=== PATIENT | male | born 1950 | race African-American/Black ===

== ENCOUNTER 2016-12-01 11:33 | Emergency (ER) | payer OTHER ==
[~2016-12-01] VITALS: Ht 180.3 cm; Wt 79.0 kg
[~2016-12-01 11:33] MED LIST: GLIP2.5T3 PO; LISI-186 PO; SIMV20TA6 PO; TRAZ-129 PO
[2016-12-01 12:45] VITALS: BP 180/89
[2016-12-01] MEDS ORDERED: KETOROLAC 60MG/2ML VIAL IM ONE (12:45)
== END 2016-12-01 14:03 | disposition home or self-care (01) ==
LOC: ER 12:47
DX: J20.9 Acute bronchitis, unspecified (principal); I10 Essential (primary) hypertension; E11.9 Type 2 diabetes mellitus without complications; F17.210 Nicotine dependence, cigarettes, uncomplicated
CPT/HCPCS: 71010; 82962; 96372; 99283; J1885

== ENCOUNTER 2018-07-07 10:17 | Inpatient (IN) | payer OTHER ==
[~2018-07-07] VITALS: Ht 180.3 cm; Wt 88.0 kg
[~2018-07-07 10:17] MED LIST changes: -TRAZ-129 PO; +TRAZ-212 PO
[2018-07-07] MEDS ORDERED: ALBUTEROL (0.083%) 2.5MG/3ML NEB HHN STA (10:58)
[2018-07-07 11:39] LABS: BASOPHILS % 1.4 % (0.0-2.0); HEMATOCRIT. 39.8 % (42.0-52.0); HEMOGLOBIN. 12.9 g/dL (14.0-18.0); MEAN CORPUSCULAR HEMOGLOBIN 22.3 pg (28.0-32.0); MEAN CORPUSCULAR VOLUME 68.6 fL (80.0-94.0); MEAN PLATELET VOLUME 8.3 fl (7.4-10.4); MONOCYTES % 7.6 % (2.0-8.0); PLATELET 166 x1000/uL (130-400); RED CELL DISTRIBUTION WIDTH 16.7 % (11.6-14.6)
[2018-07-07 11:47] LABS: CHLORIDE 105 mEq/L (98-107)
[2018-07-07 12:04] LABS: PLATELET ESTIMATE NORMAL
[2018-07-07] MEDS ORDERED: HYDROCODONE/ACETAMINOPHEN 5/325MG TABLET PO ONE (13:45)
[2018-07-07] MEDS ORDERED: IOHEXOL-300 100 ML BOTTLE ONE (14:56)
[2018-07-07] MEDS ORDERED: MAGNESIUM/ALUMINUM HYDROXIDE/SIMETHICONE 30ML UDC PO ONE (15:45)
[2018-07-07] MEDS ORDERED: ONDANSETRON HCL 4MG/2ML INJ IV STA (19:56)
[2018-07-07] MEDS ORDERED: MORPHINE SULFATE 4 MG/ML CPJ (NOT FOR IM USE) IV STA (19:56)
[2018-07-07 20:00] VITALS: BP 182/79
[2018-07-07 20:45] VITALS: BP 182/79
[2018-07-07] MEDS ORDERED: ONDANSETRON HCL 4MG/2ML INJ IV PRN (22:00)
[2018-07-07] MEDS ORDERED: DEXTROSE 50% WATER 50ML SYRINGE IV PRN (22:00)
[2018-07-07] MEDS ORDERED: GUAIFENESIN 200MG/10ML SUGAR FREE UDC PO PRN (22:00)
[2018-07-07] MEDS ORDERED: ACETAMINOPHEN 325MG TABLET PO PRN (22:00)
[2018-07-07] MEDS ORDERED: IPRATROPIUM/ALBUTEROL 0.5-3(2.5)MG/3ML NEB INH PRN (22:00)
[2018-07-07] MEDS ORDERED: HYDROCODONE/ACETAMINOPHEN 5/325MG TABLET PO PRN (22:00)
[2018-07-07] MEDS ORDERED: MAGNESIUM/ALUMINUM HYDROXIDE/SIMETHICONE 30ML UDC PO PRN (22:00)
[2018-07-07] MEDS: SODIUM CHLORIDE 0.9% INJ 3ML FLUSH IVF SCH (22:50)
[2018-07-07] MEDS: CLONIDINE 0.1MG TABLET PO PRN (22:50)
[2018-07-07] MEDS: MAGNESIUM HYDROXIDE 400MG/5ML 30ML UDC PO PRN (23:33)
[2018-07-07] MEDS: TEMAZEPAM 15MG CAPSULE PO PRN (23:33)
[2018-07-08] VITALS: BP 172/86
[2018-07-08 04:00] VITALS: BP 139/83
[2018-07-08] MEDS: KETOROLAC 30MG/ML VIAL IV PRN ×3 (04:08→19:53)
[2018-07-08] MEDS: SODIUM CHLORIDE 0.9% INJ 3ML FLUSH IVF SCH ×3 (05:16→21:45)
[2018-07-08] MEDS: BLOOD SUGAR DIAGNOSTIC STRIP TEST SCH ×4 (06:36→20:23)
[2018-07-08] MEDS: INSULIN LISPRO 100 UNITS/ML SUBCUT SCH ×4 (07:15→20:23)
[2018-07-08] MEDS ORDERED: HYDROCODONE/ACETAMINOPHEN 5/325MG TABLET PO PRN (07:52)
[2018-07-08] MEDS: ENOXAPARIN 40MG/0.4ML SYR SUBCUT SCH (08:45)
[2018-07-08] MEDS: MAGNESIUM HYDROXIDE 400MG/5ML 30ML UDC PO PRN (08:51)
[2018-07-08 09:04] LABS: *AMPHETAMINES SCREEN URINE NEGATIVE (NEGATIVE); *BARBITURATES SCREEN URINE NEGATIVE (NEGATIVE); *BENZODIAZEPINES SCREEN URINE NEGATIVE (NEGATIVE); *COCAINE SCREEN URINE NEGATIVE (NEGATIVE)
[2018-07-08 09:05] LABS: CANNABINOID URINE SCREEN PRESUMTIVE POSITIVE (NEGATIVE); METHADONE URINE SCREEN NEGATIVE (NEGATIVE); OPIATES URINE SCREEN PRESUMTIVE POSITIVE (NEGATIVE); PHENCYCLIDINE URINE SCREEN NEGATIVE (NEGATIVE)
[2018-07-08] MEDS: PANTOPRAZOLE 40MG DR TABLET PO SCH (11:34)
[2018-07-08] MEDS: HYDROCODONE/ACETAMINOPHEN 5/325MG TABLET PO PRN ×3 (13:22→21:45)
[2018-07-08 15:53] VITALS: BP 153/87
[2018-07-08 17:33] LABS: T4 FREE 0.79 ng/dL (0.76-1.46)
[2018-07-08 19:25] VITALS: BP 142/80
[2018-07-08] MEDS ORDERED: REGADENOSON 0.4 MG/5 ML IV NR (19:30)
[2018-07-08] MEDS: TEMAZEPAM 15MG CAPSULE PO PRN (21:45)
[2018-07-08 23:38] LABS: CREATINE KINASE MB FRACTION 2.9 ng/mL (0.5-3.6)
[2018-07-09] MEDS: KETOROLAC 30MG/ML VIAL IV PRN ×2 (03:13→13:42)
[2018-07-09] MEDS: PANTOPRAZOLE 40MG DR TABLET PO SCH (06:45)
[2018-07-09] MEDS: BLOOD SUGAR DIAGNOSTIC STRIP TEST SCH ×3 (06:47→16:45)
[2018-07-09] MEDS: SODIUM CHLORIDE 0.9% INJ 3ML FLUSH IVF SCH (06:51)
[2018-07-09] MEDS: INSULIN LISPRO 100 UNITS/ML SUBCUT SCH ×2 (07:05→13:43)
[2018-07-09 07:53] LABS: CREATINE KINASE MB FRACTION 3.1 ng/mL (0.5-3.6)
[2018-07-09] MEDS ORDERED: REGADENOSON 0.4 MG/5 ML IV ONE (08:00)
[2018-07-09 08:30] VITALS: BP 185/81
[2018-07-09] MEDS ORDERED: LIDOCAINE 5% PATCH TOP SCH (09:00)
[2018-07-09] MEDS: CLONIDINE 0.1MG TABLET PO PRN (09:52)
[2018-07-09] MEDS: HYDROCODONE/ACETAMINOPHEN 5/325MG TABLET PO PRN (09:52)
[2018-07-09] MEDS: ENOXAPARIN 40MG/0.4ML SYR SUBCUT SCH (09:53)
[2018-07-09 12:00] VITALS: BP 137/85
[2018-07-09 16:44] VITALS: BP 137/85
== END 2018-07-09 17:05 | disposition home or self-care (01) | DRG 313 ==
LOC: ER 10:17 → EDBEDREQ 16:08 → EDBEDREQTM 16:08 → 5WST 16:08 → ENRESERV 19:16
PROVIDERS: ADMIT Internal Medicine; ATTEND Internal Medicine
DX: R07.89 Other chest pain (principal); E11.9 Type 2 diabetes mellitus without complications; E78.5 Hyperlipidemia, unspecified; F17.200 Nicotine dependence, unspecified, uncomplicated; G89.29 Other chronic pain; I10 Essential (primary) hypertension; K21.9 Gastro-esophageal reflux disease without esophagitis; M54.5 Low back pain; Z79.899 Other long term (current) drug therapy; Z82.49 Family history of ischemic heart disease and other diseases of the circulatory system; Z83.3 Family history of diabetes mellitus
CPT/HCPCS: 36415; 71045; 74177; 78452; 80061; 80305; 82550; 82553; 82962; 83036; 83880; 84439; 84443; 84484; 85379; 93005; 93017; 93306; 94640; 96374; 99285; A9500; J1650; J1815; J1885; J2270; J2405; J2785; J7611; Q9967

== ENCOUNTER 2018-09-27 10:56 | Emergency (ER) | payer OTHER ==
[~2018-09-27] VITALS: Ht 177.8 cm; Wt 78.0 kg
[~2018-09-27 10:56] MED LIST changes: -GLIP2.5T3 PO
[2018-09-27] MEDS ORDERED: ONDANSETRON HCL 4MG/2ML INJ IV STA (12:47)
[2018-09-27] MEDS ORDERED: ASPIRIN 81MG TABLET PO ONE (13:00)
[2018-09-27] MEDS ORDERED: MORPHINE SULFATE 10 MG/ML CPJ IV ONE ×2 (13:00→16:15)
[2018-09-27 14:10] LABS: CHLORIDE 108 mEq/L (98-107)
[2018-09-27 14:14] LABS: ETHANOL BLOOD < 10 mg/dL
[2018-09-27 14:15] LABS: D-DIMER 1.91 mg/L FEU (<0.50); HEMATOCRIT. 38.3 % (42.0-52.0); HEMOGLOBIN. 12.2 g/dL (14.0-18.0); MEAN CORPUSCULAR HEMOGLOBIN 21.7 pg (28.0-32.0); MEAN CORPUSCULAR VOLUME 68.4 fL (80.0-94.0); PARTIAL THROMBOPLASTIN TIME 21.2 sec (23.4-31.0); PROTHROMBIN TIME 10.4 sec (9.1-11.1); RED CELL DISTRIBUTION WIDTH 16.8 % (11.6-14.6)
[2018-09-27 14:59] LABS: PLATELET ESTIMATE NORMAL
[2018-09-27 15:01] LABS: PLATELET 153 x1000/uL (130-400)
[2018-09-27] MEDS ORDERED: ONDANSETRON HCL 4MG/2ML INJ IV ONE (16:15)
[2018-09-27 18:26] VITALS: BP 162/75
[2018-09-27] MEDS ORDERED: IOHEXOL-350 100 ML BOTTLE ONE (19:00)
[2018-09-27 19:28] LABS: CLARITY URINE CLOUDY (CLEAR); COLOR URINE YELLOW (YELLOW); KETONES URINE NEGATIVE (NEGATIVE); LEUKOCYTE ESTERASE URINE 1+ (NEGATIVE); NITRITE URINE POSITIVE (NEGATIVE); OCCULT BLOOD URINE NEGATIVE (NEGATIVE); PROTEIN URINE 1+ (NEGATIVE); SPECIFIC GRAVITY URINE 1.018 (1.005-1.030); UROBILINOGEN URINE 0.2 E.U./dL (0.2-1.0)
[2018-09-28 15:23] LABS: *AMPHETAMINES SCREEN URINE NEGATIVE (NEGATIVE); *BARBITURATES SCREEN URINE NEGATIVE (NEGATIVE); *BENZODIAZEPINES SCREEN URINE NEGATIVE (NEGATIVE); *COCAINE SCREEN URINE NEGATIVE (NEGATIVE); CANNABINOID URINE SCREEN PRESUMTIVE POSITIVE (NEGATIVE); METHADONE URINE SCREEN PRESUMTIVE POSITIVE (NEGATIVE); OPIATES URINE SCREEN PRESUMTIVE POSITIVE (NEGATIVE)
[2018-09-28 15:25] LABS: PHENCYCLIDINE URINE SCREEN NEGATIVE (NEGATIVE)
== END 2018-09-27 18:28 | disposition home or self-care (01) ==
LOC: ER 13:54 → CANBEDREQ 21:19
DX: R07.89 Other chest pain (principal); M25.561 Pain in right knee; I10 Essential (primary) hypertension; E11.9 Type 2 diabetes mellitus without complications; F17.290 Nicotine dependence, other tobacco product, uncomplicated
CPT/HCPCS: 36415; 71045; 71275; 80053; 80305; 81003; 83605; 83690; 83880; 84484; 85025; 85379; 85610; 85730; 87040; 87077; 87086; 87186; 93005; 93970; 96374; 96375; 96376; 99284; 99406; G0482; J2270; J2405; Q9967

== ENCOUNTER 2019-04-07 11:55 | Emergency (ER) | payer OTHER ==
[~2019-04-07] VITALS: Ht 180.3 cm; Wt 80.0 kg
[~2019-04-07 11:55] MED LIST changes: -TRAZ-212 PO; +TRAZ-251 PO
[2019-04-07] MEDS ORDERED: SODIUM CHLORIDE 0.9% 1,000 ML IV ONE (13:36)
[2019-04-07] MEDS ORDERED: METOCLOPRAMIDE HCL 10MG/2ML VIAL IV STA (13:36)
[2019-04-07] MEDS ORDERED: KETOROLAC 30MG/ML VIAL IV ONE (13:45)
[2019-04-07] MEDS ORDERED: IPRATROPIUM/ALBUTEROL 0.5-3(2.5)MG/3ML NEB HHN ONE (13:45)
[2019-04-07 14:41] LABS: EOSINOPHILS % 3.4 % (0.0-5.0); HEMATOCRIT. 37.2 % (42.0-52.0); HEMOGLOBIN. 12.1 g/dL (14.0-18.0); LYMPHOCYTES % 45.6 % (20.0-50.0); MEAN CORPUSCULAR HEMOGLOBIN 22.2 pg (28.0-32.0); MEAN CORPUSCULAR VOLUME 68.6 fL (80.0-94.0); MEAN PLATELET VOLUME 8.2 fl (7.4-10.4); MONOCYTES % 8.7 % (2.0-8.0); NEUTROPHILS % 41.3 % (40.0-76.0); PLATELET 157 x1000/uL (130-400); RED BLOOD CELL COUNT 5.43 mill/uL (4.7-6.1); RED CELL DISTRIBUTION WIDTH 19.2 % (11.6-14.6)
[2019-04-07 14:43] VITALS: BP 121/66
[2019-04-07 14:44] LABS: CHLORIDE 108 mEq/L (98-107)
[2019-04-07] MEDS ORDERED: DIATR MEGLU/DIATRIZOATE SOLN 30ML ONE (14:47)
[2019-04-07 14:53] LABS: PROTHROMBIN TIME 10.6 sec (9.6-11.0)
[2019-04-07 15:15] LABS: PLATELET ESTIMATE NORMAL
== END 2019-04-07 15:22 | disposition left against medical advice (07) ==
LOC: ER 11:55
DX: K59.00 Constipation, unspecified (principal); F17.210 Nicotine dependence, cigarettes, uncomplicated; I10 Essential (primary) hypertension; E78.00 Pure hypercholesterolemia, unspecified; E11.9 Type 2 diabetes mellitus without complications
CPT/HCPCS: 36415; 80053; 83690; 85025; 85610; 94640; 96374; 96375; 99283; J1885; J2765; J7030; J7620; Q9963

== ENCOUNTER 2019-06-09 15:36 | Inpatient (IN) | payer OTHER ==
[~2019-06-09] VITALS: Ht 180.3 cm; Wt 81.6 kg
[2019-06-09 17:31] LABS: EOSINOPHILS % 2.2 % (0.0-5.0); HEMATOCRIT. 39.5 % (42.0-52.0); HEMOGLOBIN. 12.7 g/dL (14.0-18.0); LYMPHOCYTES % 35.2 % (20.0-50.0); MEAN CORPUSCULAR HEMOGLOBIN 22.1 pg (28.0-32.0); MEAN CORPUSCULAR VOLUME 68.5 fL (80.0-94.0); MEAN PLATELET VOLUME 8.4 fl (7.4-10.4); MONOCYTES % 7.6 % (2.0-8.0); PLATELET 158 x1000/uL (130-400); RED BLOOD CELL COUNT 5.77 mill/uL (4.7-6.1); RED CELL DISTRIBUTION WIDTH 17.4 % (11.6-14.6)
[2019-06-09 17:38] LABS: CHLORIDE 110 mEq/L (98-107)
[2019-06-09] MEDS ORDERED: ONDANSETRON HCL 4MG/2ML INJ IV STA (17:38)
[2019-06-09] MEDS ORDERED: IPRATROPIUM BROMIDE (0.02%) 0.5MG/2.5ML NEB HHN STA (17:38)
[2019-06-09] MEDS ORDERED: MORPHINE SULFATE 4 MG/ML CPJ (NOT FOR IM USE) IV STA (17:38)
[2019-06-09] MEDS ORDERED: ALBUTEROL (0.083%) 2.5MG/3ML NEB HHN STA (17:38)
[2019-06-09] MEDS ORDERED: ASPIRIN 81MG TABLET PO ONE (17:45)
[2019-06-09] MEDS ORDERED: NITROGLYCERIN OINT 1GM/INCH UDPKT TD ONE (17:45)
[2019-06-09 17:47] LABS: PLATELET ESTIMATE NORMAL
[2019-06-09 21:45] VITALS: BP 115/59
[2019-06-09] MEDS ORDERED: ONDANSETRON HCL 4MG/2ML INJ IV PRN (23:00)
[2019-06-09] MEDS ORDERED: HYDROCODONE/ACETAMINOPHEN 5/325MG TABLET PO PRN (23:00)
[2019-06-09] MEDS ORDERED: CLONIDINE 0.1MG TABLET PO PRN (23:00)
[2019-06-09] MEDS ORDERED: IPRATROPIUM/ALBUTEROL 0.5-3(2.5)MG/3ML NEB ORI PRN (23:00)
[2019-06-09 23:10] LABS: CLARITY URINE CLOUDY (CLEAR); COLOR URINE YELLOW (YELLOW); KETONES URINE NEGATIVE (NEGATIVE); LEUKOCYTE ESTERASE URINE 1+ (NEGATIVE); NITRITE URINE NEGATIVE (NEGATIVE); OCCULT BLOOD URINE NEGATIVE (NEGATIVE); PH URINE 6.5 (4.5-8.0); PROTEIN URINE NEGATIVE (NEGATIVE); SPECIFIC GRAVITY URINE 1.016 (1.005-1.030); UROBILINOGEN URINE 0.2 E.U./dL (0.2-1.0)
[2019-06-09 23:21] LABS: *BARBITURATES SCREEN URINE NEGATIVE (NEGATIVE); *BENZODIAZEPINES SCREEN URINE NEGATIVE (NEGATIVE); *COCAINE SCREEN URINE NEGATIVE (NEGATIVE); METHADONE URINE SCREEN NEGATIVE (NEGATIVE); OPIATES URINE SCREEN PRESUMTIVE POSITIVE (NEGATIVE)
[2019-06-09 23:22] LABS: *AMPHETAMINES SCREEN URINE NEGATIVE (NEGATIVE); CANNABINOID URINE SCREEN PRESUMTIVE POSITIVE (NEGATIVE); PHENCYCLIDINE URINE SCREEN NEGATIVE (NEGATIVE)
[2019-06-10 00:50] VITALS: BP 129/66
[2019-06-10] MEDS: LORAZEPAM 2MG/ML CPJ IV PRN ×2 (00:56→16:19)
[2019-06-10] MEDS: MORPHINE SULFATE 2 MG/ML CPJ (NOT FOR IM USE) IV PRN ×5 (03:12→21:47)
[2019-06-10 04:00] VITALS: BP 133/73
[2019-06-10 07:35] LABS: CREATINE KINASE 137 IU/L (39-308)
[2019-06-10 07:36] LABS: CREATINE KINASE MB FRACTION < 1.0 ng/mL (0.5-3.6)
[2019-06-10] MEDS: ASPIRIN 81MG EC TABLET PO SCH (09:13)
[2019-06-10] MEDS: ENOXAPARIN 40MG/0.4ML SYR SUBCUT SCH (09:13)
[2019-06-10] MEDS: THIAMINE HCL 100MG TABLET PO SCH (09:13)
[2019-06-10] MEDS ORDERED: PNEUMOCOCCAL 23-VAL P-SAC VAC 0.5 ML IM ONE (10:00)
[2019-06-10] MEDS: LISINOPRIL 5MG TABLET PO SCH (11:32)
[2019-06-10 13:36] LABS: CHLORIDE 108 mEq/L (98-107)
[2019-06-10] MEDS ORDERED: IOHEXOL-300 100 ML BOTTLE ONE (13:45)
[2019-06-10] MEDS: LEVOFLOXACIN 500MG PREMIX 100 ML IV SCH (14:09)
[2019-06-10 16:08] LABS: CREATINE KINASE 135 IU/L (39-308)
[2019-06-10 16:09] LABS: CREATINE KINASE MB FRACTION < 1.0 ng/mL (0.5-3.6)
[2019-06-10 20:47] VITALS: BP 132/62
[2019-06-11] VITALS: BP 150/72
[2019-06-11] MEDS: LORAZEPAM 2MG/ML CPJ IV PRN ×2 (00:48→08:49)
[2019-06-11 04:00] VITALS: BP 144/70
[2019-06-11] MEDS: MORPHINE SULFATE 2 MG/ML CPJ (NOT FOR IM USE) IV PRN ×3 (04:29→14:21)
[2019-06-11 06:31] LABS: BASOPHILS % 0.3 % (0.0-2.0); EOSINOPHILS % 1.3 % (0.0-5.0); HEMATOCRIT. 37.3 % (42.0-52.0); HEMOGLOBIN. 12.2 g/dL (14.0-18.0); LYMPHOCYTES % 13.7 % (20.0-50.0); MEAN CORPUSCULAR HEMOGLOBIN 22.3 pg (28.0-32.0); MEAN CORPUSCULAR VOLUME 68.3 fL (80.0-94.0); MEAN PLATELET VOLUME 8.6 fl (7.4-10.4); NEUTROPHILS % 77.7 % (40.0-76.0); PLATELET 153 x1000/uL (130-400); RED BLOOD CELL COUNT 5.47 mill/uL (4.7-6.1)
[2019-06-11 06:46] LABS: CHLORIDE 110 mEq/L (98-107)
[2019-06-11 08:01] VITALS: BP 151/79
[2019-06-11] MEDS: LISINOPRIL 5MG TABLET PO SCH (08:59)
[2019-06-11] MEDS: ASPIRIN 81MG EC TABLET PO SCH (08:59)
[2019-06-11] MEDS: ENOXAPARIN 40MG/0.4ML SYR SUBCUT SCH (09:02)
[2019-06-11] MEDS: THIAMINE HCL 100MG TABLET PO SCH (09:23)
[2019-06-11] MEDS: LEVOFLOXACIN 500MG PREMIX 100 ML IV SCH (12:15)
[2019-06-11 12:30] VITALS: BP 135/62
[2019-06-11 14:10] VITALS: BP 104/62
[2019-06-11 15:33] VITALS: BP 104/72
== END 2019-06-11 16:15 | disposition home or self-care (01) | DRG 394 ==
LOC: ER 15:36 → 6WST 17:44 → EDBEDREQ 17:46 → ENRESERV 20:33
PROVIDERS: ADMIT Internal Medicine Nephrology; ATTEND Internal Medicine Nephrology
DX: K40.90 Unilateral inguinal hernia, without obstruction or gangrene, not specified as recurrent (principal); N39.0 Urinary tract infection, site not specified; E11.9 Type 2 diabetes mellitus without complications; E78.5 Hyperlipidemia, unspecified; F17.200 Nicotine dependence, unspecified, uncomplicated; I10 Essential (primary) hypertension; Z79.899 Other long term (current) drug therapy
CPT/HCPCS: 36415; 71045; 74178; 76872; 80048; 80305; 81003; 82550; 82553; 82962; 83880; 84484; 90732; 93005; 94640; 99291; J1650; J1956; J2060; J2270; J2405; J7611; Q9967

== ENCOUNTER 2019-07-20 15:01 | Emergency (ER) | payer OTHER ==
[~2019-07-20] VITALS: Ht 175.3 cm; Wt 80.0 kg
[2019-07-20] MEDS ORDERED: CYCLOBENZAPRINE 10MG TABLET PO ONE (17:45)
[2019-07-20] MEDS ORDERED: IBUPROFEN 600MG TABLET PO ONE (17:45)
[2019-07-20 17:56] VITALS: BP 125/70
== END 2019-07-20 17:55 | disposition home or self-care (01) ==
LOC: ER 16:22
DX: S16.1XXA Strain of muscle, fascia and tendon at neck level, initial encounter (principal); F17.200 Nicotine dependence, unspecified, uncomplicated; F43.10 Post-traumatic stress disorder, unspecified; F31.9 Bipolar disorder, unspecified; F20.9 Schizophrenia, unspecified; I10 Essential (primary) hypertension; Z98.890 Other specified postprocedural states; V49.88XA Car occupant (driver) (passenger) injured in other specified transport accidents, initial encounter; Y93.89 Activity, other specified; Y92.89 Other specified places as the place of occurrence of the external cause; Y99.8 Other external cause status
CPT/HCPCS: 99283

== ENCOUNTER 2025-02-14 09:22 | Emergency (ER) | payer OTHER ==
[~2025-02-14] VITALS: Ht 172.7 cm; Wt 69.0 kg
[~2025-02-14 09:22] MED LIST changes: +SIMV-43 PO; -SIMV20TA6 PO
[2025-02-14 09:30] VITALS: O2SAT 99
[2025-02-14 10:06] LABS: BASOPHILS % 0.7 % (0.0-2.0); DIFFERENTIAL COMMENT 0; EOSINOPHILS % 1.3 % (0.0-5.0); HEMATOCRIT. 40.5 % (42.0-52.0); HEMOGLOBIN. 13.5 g/dL (14.0-18.0); MEAN CORPUSCULAR HEMOGLOBIN 26.3 pg (28.0-32.0); MEAN CORPUSCULAR HGB CONC 33.3 g/dL (31.0-37.0); MEAN CORPUSCULAR VOLUME 78.9 fL (80.0-94.0); MEAN PLATELET VOLUME 6.7 fl (7.4-10.4); MONOCYTES % 9.2 % (2.0-8.0); NEUTROPHILS % 71.8 % (40.0-76.0); PLATELET 241 x1000/uL (130-400); RED BLOOD CELL COUNT 5.14 mill/uL (4.7-6.1); RED CELL DISTRIBUTION WIDTH 13.6 % (11.6-14.6); WHITE BLOOD COUNT 4.5 x1000/uL (4.5-11.0)
[2025-02-14 10:12] LABS: CHLORIDE 102 mEq/L (98-107); POTASSIUM 3.9 mEq/L (3.5-5.1); SODIUM 136 mEq/L (136-145)
[2025-02-14 10:13] LABS: CALCIUM 9.5 mg/dL (8.7-10.4); CARBON DIOXIDE 25 mEq/L (21-32)
[2025-02-14 10:18] LABS: CREATININE 1.1 mg/dL (0.6-1.3); GLUCOSE 107 mg/dL (70-105); UREA NITROGEN BLOOD 11 mg/dL (9-23)
[2025-02-14 10:19] LABS: ETHANOL BLOOD < 10 mg/dL (<10); TROPONIN I HIGH SENSITIVITY 10 ng/L (3.0-53)
[2025-02-14] MEDS: SODIUM CHLORIDE 0.9% 1,000 ML IV ONE (10:30)
[2025-02-14] MEDS: KETOROLAC 30MG/ML VIAL IV STA (10:30)
[2025-02-14 10:44] LABS: CLARITY URINE CLEAR (CLEAR); COLOR URINE DARK YELLOW (YELLOW); GLUCOSE URINE NEGATIVE (NEGATIVE); KETONES URINE TRACE (NEGATIVE); LEUKOCYTE ESTERASE URINE NEGATIVE (NEGATIVE); NITRITE URINE NEGATIVE (NEGATIVE); OCCULT BLOOD URINE NEGATIVE (NEGATIVE); PH URINE 5.5 (4.5-8.0); PROTEIN URINE 1+ (NEGATIVE); SPECIFIC GRAVITY URINE 1.022 (1.005-1.030)
[2025-02-14 10:49] LABS: ALANINE AMINOTRANSFERASE 14 IU/L (10-49); ALBUMIN 4.6 g/dL (3.2-4.8); ASPARTATE AMINOTRANSFERASE 16 IU/L (<34); BILIRUBIN DIRECT 0.2 mg/dL (<=3.0)
[2025-02-14 10:50] LABS: BILIRUBIN TOTAL 0.7 mg/dL (0.1-1.0); PROTEIN TOTAL 8.1 g/dL (6.0-8.3)
[2025-02-14 11:03] LABS: BACTERIA URINE NONE SEEN; HYALINE CASTS URINE 20-30 /lpf; RBC URINE 0-2 /hpf (0-2); SQUAMOUS EPITHELIAL CELL URINE 1+ /lpf (RARE/1+); WBC URINE 0-2 /hpf (0-2); YEAST URINE NONE SEEN
[2025-02-14 11:16] LABS: *AMPHETAMINES SCREEN URINE NEGATIVE (NEGATIVE); *BARBITURATES SCREEN URINE NEGATIVE (NEGATIVE); *BENZODIAZEPINES SCREEN URINE NEGATIVE (NEGATIVE); *COCAINE SCREEN URINE PRESUMPTIVE POSITIVE (NEGATIVE); CANNABINOID URINE SCREEN NEGATIVE (NEGATIVE); ECSTASY MDMA SCREEN URINE CONF.TEST INDICATED (NEGATIVE); METHADONE URINE SCREEN NEGATIVE (NEGATIVE); OPIATES URINE SCREEN NEGATIVE (NEGATIVE); PHENCYCLIDINE URINE SCREEN NEGATIVE (NEGATIVE)
[2025-02-14 12:32] LABS: TROPONIN I HIGH SENSITIVITY 9 ng/L (3.0-53)
[2025-02-14 14:37] LABS: ALANINE AMINOTRANSFERASE 14 IU/L (10-49); ALBUMIN 4.2 g/dL (3.2-4.8); ASPARTATE AMINOTRANSFERASE 18 IU/L (<34); BILIRUBIN DIRECT 0.2 mg/dL (<=3.0); BILIRUBIN TOTAL 0.6 mg/dL (0.1-1.0); PROTEIN TOTAL 7.7 g/dL (6.0-8.3)
[2025-02-14] MEDS ORDERED: ACET-2708 MT (15:07)
[2025-02-14] MEDS: ACETAMINOPHEN 325MG TABLET PO ONE (15:28)
[2025-02-14 15:40] VITALS: BP 137/61; PULSE 99; RESP 15; TEMP 36.7; O2SAT 99
== END 2025-02-14 15:45 | disposition home or self-care (01) ==
LOC: ER 09:32
DX: R10.9 Unspecified abdominal pain (principal); Z79.899 Other long term (current) drug therapy; F10.90 Alcohol use, unspecified, uncomplicated; Y90.9 Presence of alcohol in blood, level not specified
CPT/HCPCS: 80076; 80305; 80048; 81003; 80320; 83690; 85025; 84484; 36415; 71045; 74176; 93005; 96361; 96374; 99285; J1885; J7030; G0480

== ENCOUNTER 2025-02-19 05:10 | Emergency (ER) | payer OTHER ==
[~2025-02-19] VITALS: Ht 180.3 cm; Wt 66.0 kg
[~2025-02-19 05:10] MED LIST changes: +ACET-2708 MT
[2025-02-19 05:21] VITALS: O2SAT 100
[2025-02-19] MEDS: MORPHINE SULFATE 4 MG/ML INJ (FOR IV/IM USE) IV ONE ×2 (06:30→10:50)
[2025-02-19 06:49] LABS: BASOPHILS % 0.8 % (0.0-2.0); DIFFERENTIAL COMMENT 0; EOSINOPHILS % 1.2 % (0.0-5.0); HEMATOCRIT. 37.4 % (42.0-52.0); HEMOGLOBIN. 12.4 g/dL (14.0-18.0); LYMPHOCYTES % 19.2 % (20.0-50.0); MEAN CORPUSCULAR HGB CONC 33.1 g/dL (31.0-37.0); MEAN CORPUSCULAR VOLUME 78.5 fL (80.0-94.0); MONOCYTES % 9.9 % (2.0-8.0); NEUTROPHILS % 68.9 % (40.0-76.0); PLATELET 207 x1000/uL (130-400); RED BLOOD CELL COUNT 4.76 mill/uL (4.7-6.1); RED CELL DISTRIBUTION WIDTH 13.7 % (11.6-14.6); WHITE BLOOD COUNT 4.8 x1000/uL (4.5-11.0)
[2025-02-19 07:00] LABS: CHLORIDE 109 mEq/L (98-107); POTASSIUM 3.8 mEq/L (3.5-5.1); SODIUM 141 mEq/L (136-145)
[2025-02-19 07:01] LABS: CALCIUM 9.6 mg/dL (8.7-10.4); CARBON DIOXIDE 27 mEq/L (21-32)
[2025-02-19 07:06] LABS: CREATININE 1.2 mg/dL (0.6-1.3); GLUCOSE 115 mg/dL (70-105); UREA NITROGEN BLOOD 16 mg/dL (9-23)
[2025-02-19 07:08] LABS: ALANINE AMINOTRANSFERASE 10 IU/L (10-49); ALBUMIN 4.4 g/dL (3.2-4.8); ASPARTATE AMINOTRANSFERASE 12 IU/L (<34); BILIRUBIN DIRECT 0.1 mg/dL (<=3.0); BILIRUBIN TOTAL 0.3 mg/dL (0.1-1.0)
[2025-02-19 07:09] LABS: PROTEIN TOTAL 7.6 g/dL (6.0-8.3)
[2025-02-19] MEDS: LABETALOL 5MG/ML 4ML INJ IV PRN (12:01)
[2025-02-19] MEDS: MORPHINE SULFATE 4 MG/ML INJ (FOR IV/IM USE) IV SCH (12:01)
[2025-02-19 12:31] VITALS: BP 166/70; PULSE 56; RESP 12; TEMP 37; O2SAT 100
[2025-02-20] MEDS ORDERED: IOHEXOL-300 100 ML BOTTLE ONE (00:02)
== END 2025-02-19 12:45 | disposition short-term general hospital (02) ==
LOC: ER 05:10 → EDBEDREQ 06:05 → CANBEDREQ 10:09 → ER 12:45
DX: R10.32 Left lower quadrant pain (principal); I10 Essential (primary) hypertension; Z79.899 Other long term (current) drug therapy
CPT/HCPCS: 99285; 74177; 96374; 96375; 80076; 80048; 83690; 85025; 36415; 96376; Q9967; J3490; J2270; A4606